=== PATIENT | male | born 1970 | race Caucasian/White ===

== ENCOUNTER 2017-05-04 22:43 | Emergency (ER) | payer SELFPAY ==
[~2017-05-04] VITALS: Ht 177.8 cm; Wt 92.0 kg
[2017-05-05] MEDS ORDERED: KETOROLAC 30 MG/1 ML ONE (00:11)
[2017-05-05] MEDS ORDERED: HYDROmorphone 1 MG/ML, 1ML ONE (00:11)
[2017-05-05] MEDS ORDERED: ONDANSETRON 2MG/ML, 2ML ONE (00:11)
[2017-05-05 00:23] LABS: HEMATOCRIT 50.1 % (39.2-51.8); HEMOGLOBIN 16.8 g/dL (13.7-18.0); WHITE BLOOD COUNT 15.1 x10^3/uL (3.4-10)
[2017-05-05] MEDS ORDERED: HYDROmorphone 1 MG/ML, 1ML IVPush PRN (00:30)
[2017-05-05] MEDS ORDERED: ONDANSETRON 2MG/ML, 2ML IVPush ONE (00:30)
[2017-05-05] MEDS ORDERED: KETOROLAC 30 MG/1 ML IVPush ONE (00:30)
[2017-05-05 00:35] LABS: ASPARTATE AMINO TRANSFERASE 25 U/L (15-37); BLOOD UREA NITROGEN 25 mg/dL (7-18)
[2017-05-05 01:56] LABS: PATH.CAST-FLAG NOT PRESENT; SPERM-FLAG NOT PRESENT; SRC-FLAG NOT PRESENT; XTAL-FLAG NOT PRESENT; YLC-FLAG NOT PRESENT
[2017-05-05 02:17] VITALS: BP 141/88
== END 2017-05-05 02:19 | disposition home or self-care (01) ==
LOC: ED 23:59
DX: N20.1 Calculus of ureter (principal); R31.9 Hematuria, unspecified
CPT/HCPCS: 36415; 74176; 80053; 81001; 85025; 96374; 96375; 99285; J1170; J1885; J2405